=== PATIENT | male | born 1945 | race Caucasian/White ===

== ENCOUNTER 2019-04-07 08:51 | Inpatient (IN) ==
[2019-03-30 13:17] LABS: Basophils # (Auto) 0 K/mcL (0.0-0.3); Basophils % (Auto) 0.8 % (0.0-2.0); Eosinophils # (Auto) 0.2 K/mcL (0.0-0.7); Eosinophils % (Auto) 3.7 % (0.0-7.0); Granulocytes % (Auto) 67.4 % (38.0-78.0); Hematocrit 46.7 % (41.0-55.0); Hemoglobin 15.6 g/dL (13.5-16.5); Lymphocytes % (Auto) 18.8 % (15.5-49.0); Mean Cell Volume 99.2 fL (80.0-100.0); Mean Corpuscular HGB Conc 33.3 g/dL (31.0-36.0); Mean Platelet Volume 8.2 fL (7.4-10.4); Monocytes # (Auto) 0.5 K/mcL (0.1-0.9); Monocytes % (Auto) 9.3 % (1.0-12.0); Platelet Count 209 K/mcL (140-440); RBC 4.71 M/mcL (4.50-5.90); Red Cell Distribution Width 13.2 % (11.5-14.5); WBC 5.1 K/mcL (4.5-11.0)
[2019-03-30 13:28] LABS: Blood Urea Nitrogen 12 mg/dl (8-23); Calcium 9.4 mg/dl (8.6-10.4); Carbon Dioxide 30 mmol/L (22-30); Chloride 102 mmol/L (96-108); Estimated Average Glucose(eAG) 114 mg/dL; Glomerular Filtration Rate 89; Glucose 103 mg/dL (70-105); Hemoglobin A1C 5.6 % HGB (4.0-6.0)
[2019-03-30 14:00] LABS: Appearance,Urine CLEAR; Bilirubin,Urine NEG (NEG); Color,Urine YELLOW; Culture Indicated,Urine NO; Glucose,Urine (UA) NEGATIVE (NEG); Ketones,Urine NEG (NEG); Leukocyte Esterase,Urine NEG /uL (NEG); Nitrate,Urine NEG (NEG); Protein,Urine NEG (NEG); Specific Gravity,Urine 1.014 (1.000-1.035); Urine Blood NEG mg/dL (<0.03); Urobilinogen,Urine NEG (NEG)
[~2019-04-07 08:51] MED LIST: IPRATROPIUM/ALBUTEROL 3 ML AMPUL.NEB NEB PRN; PREGABALIN 75 MG CAPSULE PO SCH; SCOPOLAMINE 1 PATCH PATCH TOPICAL PRN; ceFAZolin 2 GM in DEXTROSE 5% IN WATER 50 ML IV SCH; oxyCODONE 10 MG TAB.ER.12H PO SCH
[2019-04-07] MEDS: CELECOXIB 200 MG CAPSULE PO SCH ×2 (09:03→09:04)
[2019-04-07] MEDS ORDERED: ONDANSETRON 4 MG/2 ML VIAL IV ONE (11:55)
[2019-04-07] MEDS ORDERED: TRANEXAMIC ACID 1,000 MG/10 ML VIAL IV ONE ×2 (11:55→13:22)
[2019-04-07] MEDS ORDERED: KETAMINE 100 MG/ML ML IV ONE (11:55)
[2019-04-07] MEDS ORDERED: ROPIVACAINE HCL/PF 20 ML VIAL IJ ONE (11:55)
[2019-04-07] MEDS ORDERED: DEXAMETHASONE 10 MG/ML VIAL IV ONE (11:55)
[2019-04-07] MEDS ORDERED: PHENYLEPHRINE 10 MG/ML VIAL IV ONE (11:55)
[2019-04-07] MEDS ORDERED: LIDOCAINE HCL/PF 100 MG/5 ML SYRINGE IV ONE (11:55)
[2019-04-07] MEDS ORDERED: PROPOFOL 200 MG/20 ML VIAL IV ONE (11:55)
[2019-04-07] MEDS ORDERED: HYDROmorphone 2 MG/ML VIAL IV PRN ×2 (13:22)
[2019-04-07] MEDS ORDERED: PROMETHAZINE 25 MG/ML VIAL IV PRN (13:22)
[2019-04-07] MEDS ORDERED: diphenhydrAMINE 50 MG/ML VIAL IV PRN (13:22)
[2019-04-07] MEDS ORDERED: IPRATROPIUM/ALBUTEROL 3 ML AMPUL.NEB NEB PRN (13:22)
[2019-04-07] MEDS ORDERED: POLYETHYLENE GLYCOL 3350 17 GM PACKET PO PRN (13:22)
[2019-04-07] MEDS ORDERED: ACETAMINOPHEN 1,000 MG/100 ML BOTTLE IV ONE (13:22)
[2019-04-07] MEDS ORDERED: BISACODYL 10 MG SUPP.RECT PR PRN (13:22)
[2019-04-07] MEDS ORDERED: ONDANSETRON 4 MG/2 ML VIAL IV PRN ×2 (13:22)
[2019-04-07] MEDS ORDERED: LACTATED RINGERS 250 ML IV PRN (13:22)
[2019-04-07] MEDS ORDERED: MAGNESIUM HYDROXIDE 30 ML ORAL.SUSP PO PRN (13:22)
[2019-04-07] MEDS ORDERED: MEPERIDINE 25 MG/ML SYRINGE IV PRN (13:22)
[2019-04-07] MEDS ORDERED: KETOROLAC 15 MG/ML VIAL IV PRN (13:22)
[2019-04-07] MEDS ORDERED: BENZOCAINE/MENTHOL 1 LOZENGE PO PRN ×2 (13:22)
[2019-04-07] MEDS ORDERED: NALOXONE HCL 0.4 MG/ML VIAL IV PRN (13:22)
[2019-04-07] MEDS ORDERED: FLEETS ADULT ENEMA PR PRN (13:22)
--- NOTE | 2019-04-07 13:22 | Brief Operative Note ---
Date of procedure: 04/07/19 Pre-op diagnosis: R hip DJD Post-op diagnosis: same Procedure: Right anterior total hip arthroplasty Grafts/Implants: Yes (Depuy Actis 8 std stem, +5 36 delta head, 52 cup, neutral altrx liner) Anesthesia: spinal, GLMA Findings: arthritis Complications: none Surgeon: David Rankin Wicker Worker: Herber Andrews Estimated blood loss (cc): 250 Specimens Removed/Pathology: none sent Condition: stable Disposition: PACU
[2019-04-07] MEDS ORDERED: Betamethasone Dipropionate Cream TOPICAL PRN (13:26)
[2019-04-07] MEDS ORDERED: METHOCARBAMOL 750 MG TABLET PO PRN (13:26)
[2019-04-07] MEDS ORDERED: CLOBETASOL PROP OINT 0.05% TUBE 15GM TOPICAL PRN (13:26)
[2019-04-07] MEDS ORDERED: valACYclovir 500 MG TABLET PO PRN (13:26)
[2019-04-07] MEDS ORDERED: LACTATED RINGERS 1,000 ML IV SCH (13:30)
[2019-04-07] MEDS: fentaNYL 100 MCG/2 ML VIAL IV PRN ×4 (13:59→14:10)
--- NOTE | 2019-04-07 14:13 | Operative Note ---
DATE OF OPERATION: 04/07/2019 PREOPERATIVE DIAGNOSIS: Right hip degenerative joint disease. POSTOPERATIVE DIAGNOSIS: Right hip degenerative joint disease. PROCEDURE PERFORMED: Right anterior total hip arthroplasty placing a DePuy Actis size 8 standard offset femoral stem, a +5, 36 mm delta ceramic head ball, a 52 Maybell cup with a neutral AltrX liner. SURGEON: David Rankin MD BALLOON ARTIST: Rui Andrews PA-C. This provider's expertise and technical skill were required throughout the case. The PA assisted with preoperative coordination, intraoperative retraction, wound closure, dressing and splint application, as well as postoperative documentation and care coordination. ANESTHESIA: Spinal plus general. DRAINS: None. SPECIMENS: Femoral head which was discarded. BLOOD LOSS: 250 mL COMPLICATIONS: None. POSTOPERATIVE CONDITION: Stable. INDICATIONS FOR SURGERY: This patient is a 73-year-old male who has had a remote history of trauma to his right hip and leg. He has had progressive worsening right hip pain. Radiographs showed some degenerative changes and MRI confirmed significant arthritis. His physical exam was also positive for significant pain with range of motion of the hip. FINDINGS AT SURGERY: There was full cartilage loss off of part of the femoral head. Post implantation showed satisfactory component position. PROCEDURE IN DETAIL: The patient had been seen preoperatively. Informed consent obtained after discussion of risks and benefits of surgery. Risks including, but not limited to, bleeding; infection; injury to nerves, blood vessels, and other surrounding structures; anesthetic risks; incomplete or no resolution of symptoms; leg length discrepancy; dislocation; fracture; DVT and pulmonary embolus risks; and the possibility of needing further revision joint surgery. The patient understood these risks and wished to proceed. Correct operative site was marked and then spinal anesthesia given. The patient was then taken to the operating room and LMA general given. The patient was carefully transferred to the fracture table and then the operative hip was carefully prepped and draped in normal sterile fashion. Timeout was performed verifying patient name, operative site, and plan. Ioban was used to cover all skin surfaces. A standard anterior approach incision was made with a scalpel through skin and subcutaneous tissue. Hemostasis was obtained with Bovie cautery. Careful blunt dissection was taken down on the tensor fascia and then this was undermined circumferentially. IrriSept was irrigated and a ring retractor placed. Tensor fascia was incised in line with muscle fibers and then careful blunt dissection taken medial to the muscle belly. Blunt cobra retractors were placed on the superior and inferior femoral neck and then circumflex vessels were coagulated and cut and vastus fascia split distally. Anterior capsulectomy was performed and then the capsule releases. Corkscrew was placed in the femoral head. Prior to placement of the corkscrew we did take x-rays for joint point. Once a corkscrew was placed we used fluoroscopy to identify our approximate neck cut trajectory and then our femoral neck was cut with oscillating tip saw. Femoral head was removed and the acetabulum exposed. Labrum was excised circumferentially as well as soft tissue from the floor. We then irrigated with IrriSept. We then began sequentially reaming until 1 mm smaller than the final implant. We then opened the acetabular component. IrriSept was irrigated, after a minute pulse lavaged with saline and then the cup was impacted using the [id number]. Joint point was used to verify satisfactory cup position. A center hole cover was placed and then the acetabular liner was carefully aligned and impacted and carefully verified to be fully seated. We then released traction. The leg was externally rotated and released capsule around the medial neck. The leg was then extended and adducted. Capsule was released out towards greater trochanter and then the proximal femur was exposed. Box osteotome was used to gain canal entry and an awl was used to identify canal trajectory. Rongeur and rasp were used to lateralize and then we began sequentially broaching up to the final size. We calcar planed down onto the broach and then the neck trial and head ball were placed. The hip was reduced. Fluoro was brought in and x-rays taken, joint point was used to verify satisfactory position. We then redislocated and removed the trial implants. Definitive implants were opened. We then irrigated the femoral canal with IrriSept again, after a minute pulse lavaged with saline. The final stem was impacted and seated. We then opened the head ball. The stem was carefully cleaned and dried and the head ball was impacted. We then reduced the hip with satisfactory tension. Final fluoro images were taken and saved. We irrigated the joint with IrriSept, after a minute pulse lavaged with saline again and then closed the tensor fascia with two running #1 Vicryls, one running proximal, one running distal and a ring retractor was removed. Final IrriSept irrigation was done, after a minute final pulse lavage, and then fat was tacked to fascia with Vicryl and then 2-0 Monocryl for subcutaneous and luis for skin. Xeroform and sterile dressing were applied. The patient was then awakened, extubated, and transferred to recovery in stable condition. [id number] Job ID: [id number] Doc ID: [id number] David Rankin MD
--- NOTE | 2019-04-07 14:31 | XRay Report ---
CLINICAL INFORMATION: Right total hip arthroplasty TECHNIQUE: AP and crosstable lateral right hip COMPARISON: None. FINDINGS: Status post right total hip arthroplasty. Normal anatomic alignment. There is a small plate with multiple screws on the proximal right femoral diaphysis. There is healed fracture deformity. There is also an old healed left femoral diaphyseal fracture. IMPRESSION: Status post right total hip arthroplasty Interpreted and Authenticated by: Kj Silveira 04/07/19
--- NOTE | 2019-04-07 14:38 | XRay Report ---
CLINICAL INFORMATION: Right total hip replacement TECHNIQUE: 0.2 minutes of fluoroscopy utilized. Intraoperative spot films obtained. Right total hip arthroplasty performed. IMPRESSION: Intraoperative fluoroscopy Interpreted and Authenticated by: Kj Silveira 04/07/19
[2019-04-07] MEDS ORDERED: METHOCARBAMOL 1,000 MG/10 ML VIAL IV ONE (14:44)
[2019-04-07] MEDS: ceFAZolin 1 GM VIAL IV SCH (18:35)
[2019-04-07] MEDS: 0.9 % SODIUM CHLORIDE 1,000 ML IV SCH (19:58)
[2019-04-07] MEDS: DOCUSATE SODIUM 100 MG CAPSULE PO SCH (19:59)
[2019-04-07] MEDS: ASPIRIN 81 MG TAB.CHEW PO SCH (19:59)
[2019-04-07] MEDS: 0.9 % SODIUM CHLORIDE 10 ML SYRINGE IV SCH ×2 (20:52→21:47)
[2019-04-07] MEDS: IPRATROPIUM 0.06% NASAL SPRAY BOTTLE 30ML NAS SCH (20:53)
[2019-04-07] MEDS: amLODIPine 5 MG TABLET PO SCH (20:53)
[2019-04-07] MEDS: FLUTICASONE PROPIONATE SPRAY.NAS NS SCH (20:53)
[2019-04-07] MEDS: PHENYTOIN SOD 100 MG CAPSULE PO SCH (20:53)
[2019-04-07] MEDS ORDERED: SENNOSIDES 1 TABLET PO SCH (21:00)
[2019-04-07] MEDS: HYDROCODONE/APAP 7.5/325MG TABLET PO PRN (22:18)
[2019-04-08] MEDS: HYDROCODONE/APAP 7.5/325MG TABLET PO PRN ×3 (02:12→07:39)
[2019-04-08] MEDS: ceFAZolin 1 GM VIAL IV SCH (03:41)
[2019-04-08] MEDS: PANTOPRAZOLE 40 MG TABLET PO SCH ×2 (03:55→07:33)
[2019-04-08] MEDS: 0.9 % SODIUM CHLORIDE 1,000 ML IV SCH ×2 (05:46)
[2019-04-08] MEDS: 0.9 % SODIUM CHLORIDE 10 ML SYRINGE IV SCH (05:46)
[2019-04-08] MEDS ORDERED: LEVOTHYROXINE 125 MCG TABLET PO SCH (07:30)
--- NOTE | 2019-04-08 07:39 | Discharge Summary ---
Providers - Providers Patient information: Note initiated : 04/08/19 at 7:35 am Service Date, if different from initiated Date: [] Patient: Tesfaye Rush 73 y/o M admitted on 04/07/19 for Right Total Hip Arthroplasty Anterior. Chief Complaint: [] Discharge date: 04/08/19 Hospitalization Hospital Course: Pt was admitted for a BRENDON. Pt admitted on the day of admission. Pt transferred to the floor for IV pain meds, IV abx, and PT. Pt discharged on post-op day1. Will take ASA for DVT prophylaxis. f/u in 2 weeks. Discharge diagnosis: R hip OA Exam - Exam Clean and dry: Yes Weight bearing status: as tolerated Ortho Discharge - BRENDON - Patient Instructions Diet: Regular Diet Activity: activity as tolerated Total Hip Protocol: Follow activity instructions as provided by Physical Therapy. Dressing Care: May shower in 2 days - Follow Up Plan Follow Up Appointments: Herber Andrews PA-C [Physician Bilingual Sales Representative] - 04/22/19 10:40 am Disposition: Home, Self-Care Prognosis: Good Rehab Potential: Good Overall status at discharge: patient is progressing back to baseline - Orders For Discharge Prescriptions: Aspirin 81 mg PO BID #60 tab.chew Transmission Status: Pending to [facility] HYDROcodone/ACETAMINOPHEN [Hydrocodone-Acetamin 10-325 mg] 1 - 2 tab PO Q4 #90 tab Prescription Printed Pending Studies Resuscitation Status Full Code Diet Regular Diet Start FriApr 07 1324 Hydrocodone Bitart/Acetaminophen ([place] 7.5/325mg) 0 tab PO Q4HP PRN PRN Reason: PAIN LEVEL 3-6 Last Admin: 04/08/19 03:54 Dose: 1 tab Documented by: Admin: 04/08/19 02:12 Dose: 1 tab Documented by: Admin: 04/07/19 22:18 Dose: 1 tab Documented by: KELSI Amlodipine Besylate (Norvasc) 5 mg PO BID [facility] Last Admin: 04/07/19 20:53 Dose: Not Given Documented by: KELSI Aspirin (Aspirin) 81 mg PO BID [facility] Last Admin: 04/07/19 19:59 Dose: 81 mg Documented by: KELSI Docusate Sodium (Colace) 100 mg PO BID [facility] Last Admin: 04/07/19 19:59 Dose: 100 mg Documented by: KELSI Fluticasone Propionate (Flonase) 1 spray NS BID [facility] Last Admin: 04/07/19 20:53 Dose: Not Given Documented by: KELSI Sodium Chloride (Sodium Chloride 0.9%) 1,000 mls @ 100 mls/hr IV .Q10H [facility] Last Admin: 04/08/19 05:46 Dose: 100 mls/hr Documented by: Infusion: 04/08/19 05:46 Dose: 100 mls/hr Documented by: Admin: 04/08/19 00:00 Dose: Not Given Documented by: Admin: 04/07/19 19:58 Dose: 100 mls/hr Documented by: KELSI Ipratropium [place] (Atrovent 0.06% Nasal Srpay) 2 spray JEROME BID [facility] Last Admin: 04/07/19 20:53 Dose: Not Given Documented by: KELSI Pantoprazole Sodium (Protonix) 40 mg PO QAMAC [facility] Last Admin: 04/08/19 07:33 Dose: Not Given Documented by: NABBe Admin: 04/08/19 03:55 Dose: 40 mg Documented by: KELSI Phenytoin Sodium (Dilantin) 200 mg PO BID [facility] Last Admin: 04/07/19 20:53 Dose: Not Given Documented by: KELSI Senna (Senokot) 2 tab PO HS [facility] Last Admin: 04/07/19 19:59 Dose: 2 tab Documented by: KELSI Sodium Chloride (Saline Flush) 10 ml IV Q8 [facility] Last Admin: 04/08/19 05:46 Dose: Not Given Documented by: Admin: 04/07/19 21:47 Dose: Not Given Documented by: Admin: 04/07/19 20:52 Dose: Not Given Documented by: KELSI Shift Summary 04/08/19 03:27 Shift Summary by Idania Buck Pt rested during the shift. Pt treated with 1 [place] 7.5/325 times 2 for pain. Pt up in [place] with FWW, gait belt and 1 SBA times 1 for total of approx 100'. Pt cont to receive NS at 100 mL per hour per 20 ga IV to left AC. Pt eating and drinking without difficulty. Pt up and voiding approx 400 mL at a time without difficulty. PVR followilng 1st void was approx 300, Pt denied discomfort or concern. Pt voiding without difficulty since that time. Pt refused HS BP and SZ meds. Plan for pain control and increased ambulation. Initialized on 04/08/19 03:27 - END OF NOTE
[2019-04-08] MEDS: PHENYTOIN SOD 100 MG CAPSULE PO SCH (08:40)
[2019-04-08] MEDS: DOCUSATE SODIUM 100 MG CAPSULE PO SCH (08:40)
[2019-04-08] MEDS: ASPIRIN 81 MG TAB.CHEW PO SCH (08:41)
[2019-04-08] MEDS: amLODIPine 5 MG TABLET PO SCH (08:41)
[2019-04-08] MEDS: FLUTICASONE PROPIONATE SPRAY.NAS NS SCH (08:48)
[2019-04-08] MEDS: IPRATROPIUM 0.06% NASAL SPRAY BOTTLE 30ML NAS SCH (08:48)
[2019-04-08] MEDS ORDERED: CALCIUM (OYSTER SHELL) 500 MG TABLET PO SCH (09:00)
[2019-04-08] MEDS ORDERED: VITAMIN D3 5,000 UNIT CAPSULE PO SCH (09:00)
[2019-04-08] MEDS ORDERED: MAGNESIUM OXIDE 400 MG TABLET PO SCH (09:00)
[2019-04-08] MEDS ORDERED: GLUCOSAMINE/CHONDROITIN SULF A 1 CAP CAPSULE PO SCH (09:00)
[2019-04-08] MEDS ORDERED: LORATADINE 10 MG TABLET PO SCH (09:00)
[2019-04-08] MEDS ORDERED: ATORVASTATIN 40 MG TABLET PO SCH (09:00)
[2019-04-08] MEDS ORDERED: FISH OIL 1,000 MG CAPSULE PO SCH (09:00)
[2019-04-08] MEDS ORDERED: CYANOCOBALAMIN (VITAMIN B-12) 500 MCG TABLET PO SCH (09:00)
[2019-04-08] MEDS ORDERED: MULTIVIT,THER IRON,CA,FA & MIN 1 TABLET PO SCH (09:00)
[2019-04-08] MEDS ORDERED: SERTRALINE 100 MG TABLET PO SCH (09:00)
[2019-04-08] MEDS ORDERED: TAMSULOSIN 0.4 MG CAPSULE PO SCH (09:00)
== END 2019-04-08 10:50 | disposition home or self-care (01) | DRG 470 ==
LOC: MEDSUR 08:51
PROVIDERS: ADMIT Orthopaedic Surgery; ATTEND Orthopaedic Surgery